=== PATIENT | male | born 1940 ===

== ENCOUNTER 2020-08-09 07:15 | Inpatient (IN) | payer OTHER ==
[~2020-08-09] VITALS: Ht 167.6 cm; Wt 77.1 kg
[2020-08-09] MEDS ORDERED: TRICOR48 MG PO (09:23)
[2020-08-09] MEDS ORDERED: LOSARTAN-HCTZ1 EAC2 PO (09:23)
[2020-08-09] MEDS ORDERED: LEXAPR PO (09:24)
[2020-08-09] MEDS ORDERED: PROSC PO (09:24)
[2020-08-09] MEDS ORDERED: SYNTHROID50 MCG PO (09:24)
[2020-08-09] MEDS ORDERED: VITAMIN D PO (09:25)
[2020-08-09] MEDS ORDERED: XANA PO (09:25)
[2020-08-17] MEDS ORDERED: VITAMIN D310 MC6 (08:05)
[2020-08-17] MEDS ORDERED: LEXAPRO5 MG (08:06)
[2020-08-17] MEDS ORDERED: XANAX2 MG (08:06)
[2020-08-17] MEDS ORDERED: PROSCAR5 MG (08:07)
[2020-08-18] MEDS ORDERED: ELIQUIS2.5 MG PO (16:40)
[2020-08-18] MEDS ORDERED: PERCOCET 5-3251 EACH PO (16:40)
[2020-08-18] MEDS ORDERED: DUI500 PO (16:40)
== END 2020-08-18 17:51 | DRG 470 ==
LOC: SURH 08-16 07:00 → O/R 08-16 07:43 → SURG 08-16 10:45
PROVIDERS: ADMIT Orthopaedic Surgery; ATTEND Orthopaedic Surgery
PROC: 0SRC0J9 Replacement of Right Knee Joint with Synthetic Substitute, Cemented, Open Approach (ICD-10-PCS; principal; 2020-08-16 07:00)
DX: M17.11 Unilateral primary osteoarthritis, right knee (principal); D62 Acute posthemorrhagic anemia; I10 Essential (primary) hypertension; E03.9 Hypothyroidism, unspecified; Z20.828 Contact with and (suspected) exposure to other viral communicable diseases